=== PATIENT | female | born 1950 | race African-American/Black ===

== ENCOUNTER 2021-04-18 17:25 | Emergency (ER) | payer MEDICARE, OTHER ==
[~2021-04-18] VITALS: Ht 165.1 cm; Wt 70.0 kg
[2021-04-18] MEDS ORDERED: FAMOTIDINE 10 MG/ML 2 ML VIAL IVP ONE (17:30)
[2021-04-18] MEDS ORDERED: DiphenhydrAMINE HCL 50 MG/ML VIAL IVP ONE (17:30)
[2021-04-18] MEDS ORDERED: MethylPREDNISolone SOD SUCC 125 MG/2 ML VIAL IVP ONE (17:30)
[2021-04-18] MEDS ORDERED: FAMOTIDINE 10 MG/ML 2 ML VIAL ONE (17:31)
[2021-04-18] MEDS ORDERED: DEXAMETHASONE SOD PHOS 4 MG/ML 5 ML VIAL ONE (17:31)
[2021-04-18] MEDS ORDERED: DiphenhydrAMINE HCL 50 MG/ML VIAL ONE (17:31)
[2021-04-18 19:49] VITALS: BP 121/81
== END 2021-04-18 20:00 | disposition home or self-care (01) ==
LOC: EMS 17:26
DX: K08.89 Other specified disorders of teeth and supporting structures (principal); T36.8X5A Adverse effect of other systemic antibiotics, initial encounter; Z88.2 Allergy status to sulfonamides; Y92.89 Other specified places as the place of occurrence of the external cause
CPT/HCPCS: 96374; 96375; 99291; J1200; J2930; J3490; J1100